=== PATIENT | female | born 1990 | race Caucasian/White ===

== ENCOUNTER 2021-04-12 16:33 | Emergency (ER) | payer BC ==
[2021-04-12] MEDS ORDERED: Sodium Chloride 0.9% 1,000 ML IV STA (17:11)
--- NOTE | 2021-04-12 17:16 | EDM.PDOC ---
ED HPI GENERAL MEDICAL PROBLEM - General Chief Complaint: MARKETING OPERATIONS ASSISTANT Problem Stated Complaint: 14 WKS PG/VOMITING Time Seen by Provider: 04/12/21 16:55 Source of Information: Reports: Patient, RN Notes Reviewed History Limitations: Reports: No Limitations - History of Present Illness INITIAL COMMENTS - FREE TEXT/NARRATIVE: Patient is a 30-year-old female 14 weeks gestation presenting to the ER with complaints of vomiting. She reports last 24 hours, she has been unable to keep down food or liquids due to nausea and vomiting. She reports that she has had intermittent nausea and vomiting since the beginning of , however today has been worse. She used a Diclegis at home per her MARKETING OPERATIONS ASSISTANT's recommendation. States she took this and some liquids and then went to sleep. U emmanuel waking, vomiting recurred. She spoke with her MARKETING OPERATIONS ASSISTANT again who recommended she come to the ER for fluids. She has not taken any other medications for nausea. She has been trying to avoid Zofran unless absolutely necessary. She denies any abdominal pain, abnormal vaginal discharge or bleeding, fever, chills, or dysuria. She has had no diarrhea. Headache Pain Score (Numeric/FACES): 8 - Related Data Allergies Allergy/AdvReac Type Severity Reaction Status Date / Time No Known Allergies Allergy Verified 01/08/20 15:40 Home Meds: Home Meds Pnv No.95/Ferrous Fum/Folic AC [ Caplet] 1 tab PO DAILY 04/12/21 [History] Past Medical History - Past Health History Medical/Surgical History: Denies Medical/Surgical History - Infectious Disease History Infectious Disease History: Reports: None - Past Surgical History HEENT Surgical History: Reports: Oral Surgery Social & Family History - Tobacco Use Tobacco Use Status *Q: Never Tobacco User - Caffeine Use Caffeine Use: Reports: Soda - Recreational Drug Use Recreational Drug Use: No ED ROS GENERAL - Review of Systems Review Of Systems: Comprehensive ROS is negative, except as noted in HPI. ED EXAM, GI/ABD - Physical Exam Exam: See Below Exam Limited By: No Limitations General Appearance: Alert, WD/WN, No Apparent Distress Respiratory/Chest: No Respiratory Distress, Lungs Clear, Normal Breath Sounds, No Accessory Muscle Use, Chest Non-Tender Cardiovascular: Normal Peripheral Pulses, Regular Rate, Rhythm, No Edema, No Gallop, No JVD, No Murmur, No Rub GI/Abdominal Exam: Normal Bowel Sounds, Soft, Non-Tender, No Organomegaly, No Distention, No Abnormal Bruit, No Mass, Pelvis Stable (Female) Exam: Heart Tones (166) Neurological: Alert, Oriented, CN II-XII Intact, Normal Cognition, Normal Gait, Normal Reflexes, No Motor/Sensory Deficits Psychiatric: Normal Affect, Normal Mood Skin Exam: Warm, Dry, Intact, Normal Color, No Rash Course - Vital Signs Last Recorded V/S: Last Vital Signs Temp 98.1 F 04/12/21 17:07 Pulse 80 04/12/21 17:07 Resp 20 04/12/21 17:07 BP 105/68 04/12/21 17:07 Pulse Ox 99 04/12/21 17:07 - Orders/Labs/Meds Labs: Laboratory Tests 04/12/21 04/12/21 04/12/21 Range/Units 17:10 17:30 19:11 WBC 8.41 (3.98-10.04) K/mm3 RBC 3.75 L (3.98-5.22) M/mm3 Hgb 11.4 (11.2-15.7) gm/dl Hct 33.4 L (34.1-44.9) % MCV 89.1 (79.4-94.8) fl MCH 30.4 (25.6-32.2) pg MCHC 34.1 (32.2-35.5) g/dl RDW Std Deviation 40.0 (36.4-46.3) fL Plt Count 235 (182-369) K/mm3 MPV 11.0 (9.4-12.3) fl Neut % (Auto) 68.5 (34.0-71.1) % Lymph % (Auto) 22.8 (19.3-51.7) % Weber % (Auto) 7.4 (4.7-12.5) % Eos % (Auto) 0.6 L (0.7-5.8) Baso % (Auto) 0.6 (0.1-1.2) % Neut # (Auto) 5.76 (1.56-6.13) K/mm3 Lymph # (Auto) 1.92 (1.18-3.74) K/mm3 Weber # (Auto) 0.62 H (0.24-0.36) K/mm3 Eos # (Auto) 0.05 (0.04-0.36) K/mm3 Baso # (Auto) 0.05 (0.01-0.08) K/mm3 Sodium 136 (136-145) mEq/L Potassium 4.1 (3.5-5.1) mEq/L Chloride 102 (98-107) mEq/L Carbon Dioxide 23 (21-32) mEq/L Anion Gap 15.1 H (5-15) BUN 9 (7-18) mg/dL Creatinine 0.6 (0.55-1.02) mg/dL Est Cr Clr Drug Dosing 134.54 mL/min Estimated GFR (MDRD) > 60 (>60) mL/min BUN/Creatinine Ratio 15.0 (14-18) Glucose 72 (70-99) mg/dL Calcium 8.6 (8.5-10.1) mg/dL Magnesium 1.8 (1.8-2.4) mg/dL Total Bilirubin 0.7 (0.2-1.0) mg/dL AST 9 L (15-37) U/L ALT 16 (14-59) U/L Alkaline Phosphatase 35 L (46-116) U/L Total Protein 6.8 (6.4-8.2) g/dl Albumin 3.4 (3.4-5.0) g/dl Globulin 3.4 gm/dL Albumin/Globulin Ratio 1.0 (1-2) Urine Color Yellow (Yellow) Urine Appearance Clear (Clear) Urine pH 5.5 (5.0-8.0) Ur Specific [place] > or = 1.030 (1.005-1.030) Urine Protein Negative (Negative) Urine Glucose (UA) Negative (Negative) Urine Ketones 4+ H (Negative) Urine Occult Blood Negative (Negative) Urine Nitrite Negative (Negative) Urine Bilirubin Negative (Negative) Urine Urobilinogen 0.2 (0.2-1.0) Ur Leukocyte Esterase Negative (Negative) Urine RBC 0-5 (0-5) /hpf Urine WBC 0-5 (0-5) /hpf Ur Epithelial Cells 0-5 (0-5) /hpf Urine Bacteria Few (FEW) /hpf Urine Mucus Few (FEW) /hpf Meds: Medications Discontinued Medications Generic Name Dose Route Start Last Admin Trade Name Freq PRN Reason Stop Dose Admin Sodium Chloride 1,000 mls @ 999 mls/hr 04/12/21 17:11 04/12/21 17:40 Normal Saline IV 04/12/21 18:11 999 mls/hr NOW STA Administration Sodium Chloride 500 mls @ 999 mls/hr 04/12/21 18:29 04/12/21 18:48 Normal Saline IV 04/12/21 18:59 999 mls/hr NOW STA Administration - Re-Assessments/Exams Free Text/Narrative Re-Assessment/Exam: Patient is a 30-year-old female presenting to the emergency department with complaints of 24 hours of vomiting. She took her Diclegis at home per her MARKETING OPERATIONS ASSISTANT's recommendation, but states that she vomited shortly thereafter. She has been trying to avoid Zofran through her and would like to do so today as well. She is requesting IV fluids at this point and will request Zofran if she feels it is necessary. Exam is unremarkable. heart tones 166. She has no abdominal tenderness. She denies any cramping or vaginal discharge/bleeding. I have ordered blood work, urinalysis, and a 1 L bolus of normal saline. 04/12/21 1830 Patient is feeling somewhat better after the fluids given, however she has not been able to provide urine sample. Of ordered a second 500 mill bolus of normal saline to be given. 04/12/21 19:48 Hematology is unremarkable. Urinalysis negative for infection but positive for plus ketones. Patient is feeling much better after IV fluids. Discussed prescription for Zofran, however she declined. She is ready to be discharged home. Discussed return precautions. Discharge instructions as documented. Departure - Departure Time of Disposition: 19:50 Disposition: Home, Self-Care 01 Condition: Good Clinical Impression: Nausea and vomiting during - Discharge Information *PRESCRIPTION DRUG MONITORING PROGRAM REVIEWED*: No *COPY OF PRESCRIPTION DRUG MONITORING REPORT IN PATIENT IRA: No Instructions: Vomiting, Adult Referrals: Dillan Burt MD [Primary Care Provider] - Forms: ED Department Discharge Additional Instructions: Continue with clear liquid diet. He may slowly advance diet as tolerated using bland foods such as bananas, rice, apples, toast, or chicken noodle soup. If symptoms recur, please follow-up with your MARKETING OPERATIONS ASSISTANT or return to the ER. Sepsis Event Note (ED) - Focused Exam Vital Signs: Vital Signs Temp Pulse Resp BP Pulse Ox 04/12/21 17:07 98.1 F 80 20 105/68 99
[2021-04-12] MEDS ORDERED: Sodium Chloride 0.9% 500 ML IV STA (18:29)
== END 2021-04-12 20:00 | disposition home or self-care (01) ==
LOC: JD.ED 16:33
DX: O21.9 Vomiting of pregnancy, unspecified (principal); Z3A.14 14 weeks gestation of pregnancy
CPT/HCPCS: 36415; 80053; 81001; 83735; 85025; 99284; J7030